=== PATIENT | male | born 1975 | race Caucasian/White ===

== ENCOUNTER 2017-06-02 13:44 | Inpatient (IN) | payer MEDICAID ==
[~2017-06-02] VITALS: Ht 170.2 cm; Wt 94.0 kg
[~2017-06-02 13:44] MED LIST: ARIP15TA2 PO; BUSP15 PO; TRIH5TAB2 PO
[2017-06-02 14:40] LABS: BASOPHILS % (AUTO) 0.4 % (0.0-2.0); EOSINOPHILS % (AUTO) 4.8 % (1.0-6.0); HEMATOCRIT 41.2 % (41-53); HEMOGLOBIN 14.4 g/dL (13.5-17.5); LYMPHOCYTES # (AUTO) 1.2 K/uL (1.0-4.8); LYMPHOCYTES % (AUTO) 16.7 % (22.0-44.0); MEAN CORPUSCULAR HGB CONC 34.9 G/dL (31.0-37.0); MEAN CORPUSCULAR VOLUME 92 fL (80-100); MONOCYTES # (AUTO) 0.8 K/uL (0.1-1.0); NEUTROPHILS # (AUTO) 4.8 K/uL (1.8-7.7); NEUTROPHILS % (AUTO) 67.1 % (40.0-70.0); PLATELET COUNT (AUTO) 273 K/uL (150-450); RED BLOOD CELL COUNT(AUTO) 4.48 MIL/uL (4.50-5.90)
[2017-06-02 14:57] LABS: ANION GAP 11 mmol/L (8-16); CALCIUM, TOTAL 9.2 mg/dL (8.8-10.5); CARBON DIOXIDE 27 mmol/L (22-29); CHLORIDE 102 mmol/L (98-107); GLOMERULAR FILTR. RATE CALC > 60 mL/min (>60); GLUCOSE,RANDOM 142 mg/dL (70-110); POTASSIUM 3.8 mmol/L (3.5-5.1); SODIUM SERUM 140 mmol/L (136-145); UREA NITROGEN, BLOOD 21 mg/dL (7-18)
[2017-06-02 15:02] LABS: ALANINE AMINOTRANSFERASE 23 U/L (12-78); ALBUMIN 3.9 g/dL (3.4-5.0); ALKALINE PHOSPHATASE 75 U/L (46-116); ASPARTATE AMINOTRANSFERASE 19 U/L (15-37); BILIRUBIN,TOTAL 0.3 mg/dL (0.1-1.0); TOTAL PROTEIN, SERUM 7.2 g/dL (6.4-8.2)
[2017-06-02] MEDS ORDERED: QUEtiapine FUMARATE 100 MG TABLET PO ONE (16:45)
[2017-06-02] MEDS ORDERED: LORazepam 2 MG TABLET PO ONE (16:45)
[2017-06-02] MEDS ORDERED: LORazepam 2 MG TABLET PO PRN (17:45)
[2017-06-02] MEDS ORDERED: HALOPERIDOL 5 MG TABLET PO PRN (17:45)
[2017-06-02] MEDS ORDERED: ZOLPIDEM TARTRATE 10 MG TABLET PO PRN (17:45)
[2017-06-02 18:01] LABS: CHOL/HDL RATIO 2.3 (4.2-7.3); CHOLESTEROL 170 mg/dL (131-200); HDL CHOLESTEROL 75 mg/dL (40-60); LDL CHOL (CALC.) 80 mg/dL (0-130); TRIGLYCERIDES 73 mg/dL (15-150)
[2017-06-02 20:00] VITALS: BP 110/62
[2017-06-02] MEDS: QUEtiapine FUMARATE 300 MG TABLET PO SCH (20:06)
[2017-06-02] MEDS: TRIHEXYPHENIDYL HCL 5 MG TABLET PO SCH (20:07)
[2017-06-02 20:54] VITALS: BP 110/62
[2017-06-02] MEDS ORDERED: INFLUENZA VIRUS VACCINE QVS 2017-18 (3YR+)/PF 60 MCG/0.5 ML SYRINGE IM ONE (21:00)
[2017-06-03 07:17] VITALS: BP 137/60
[2017-06-03 08:09] VITALS: BP 112/54
[2017-06-03] MEDS: NICOTINE 14 MG/24 HOUR PATCH TD SCH (09:00)
[2017-06-03] MEDS: SERTRALINE HCL 50 MG TABLET PO SCH (09:14)
[2017-06-03] MEDS: TRIHEXYPHENIDYL HCL 5 MG TABLET PO SCH ×2 (09:14→16:03)
[2017-06-03] MEDS: BENZOCAINE/MENTHOL LOZENGE PO PRN (14:59)
[2017-06-03 16:14] VITALS: BP 124/69
[2017-06-03] MEDS: QUEtiapine FUMARATE 300 MG TABLET PO SCH (20:02)
[2017-06-04 05:50] VITALS: BP 105/63
[2017-06-04] MEDS: NICOTINE 14 MG/24 HOUR PATCH TD SCH (09:00)
[2017-06-04] MEDS: SERTRALINE HCL 50 MG TABLET PO SCH (09:09)
[2017-06-04] MEDS: TRIHEXYPHENIDYL HCL 5 MG TABLET PO SCH ×2 (09:09→16:13)
[2017-06-04 09:10] VITALS: BP 111/63
[2017-06-04 17:52] VITALS: BP 112/60
[2017-06-04] MEDS: QUEtiapine FUMARATE 300 MG TABLET PO SCH (20:17)
[2017-06-05 06:50] VITALS: BP 100/60
[2017-06-05 08:33] VITALS: BP 101/63
[2017-06-05] MEDS: NICOTINE 14 MG/24 HOUR PATCH TD SCH (09:00)
[2017-06-05] MEDS: TRIHEXYPHENIDYL HCL 5 MG TABLET PO SCH ×2 (09:06→16:03)
[2017-06-05] MEDS: SERTRALINE HCL 50 MG TABLET PO SCH (09:06)
[2017-06-05 16:23] VITALS: BP 111/65
[2017-06-05] MEDS: QUEtiapine FUMARATE 300 MG TABLET PO SCH (20:18)
[2017-06-06 05:48] VITALS: BP 100/60
[2017-06-06 08:36] VITALS: BP 123/70
[2017-06-06] MEDS: NICOTINE 14 MG/24 HOUR PATCH TD SCH (09:00)
[2017-06-06] MEDS: SERTRALINE HCL 50 MG TABLET PO SCH (09:42)
[2017-06-06] MEDS: TRIHEXYPHENIDYL HCL 5 MG TABLET PO SCH ×2 (09:42→17:02)
[2017-06-06 16:42] VITALS: BP 101/60
[2017-06-06] MEDS: QUEtiapine FUMARATE 200 MG TABLET PO SCH (17:02)
[2017-06-07 06:08] VITALS: BP 109/61
[2017-06-07 08:45] VITALS: BP 102/56
[2017-06-07] MEDS: NICOTINE 14 MG/24 HOUR PATCH TD SCH (09:00)
[2017-06-07] MEDS: SERTRALINE HCL 50 MG TABLET PO SCH (09:04)
[2017-06-07] MEDS: QUEtiapine FUMARATE 200 MG TABLET PO SCH ×2 (09:04→16:31)
[2017-06-07] MEDS: TRIHEXYPHENIDYL HCL 5 MG TABLET PO SCH ×2 (09:04→16:31)
[2017-06-07 16:00] VITALS: BP 150/66
[2017-06-08 06:19] VITALS: BP 110/68
[2017-06-08 08:21] VITALS: BP 100/58
[2017-06-08] MEDS: NICOTINE 14 MG/24 HOUR PATCH TD SCH (09:00)
[2017-06-08] MEDS: SERTRALINE HCL 50 MG TABLET PO SCH (09:43)
[2017-06-08] MEDS: QUEtiapine FUMARATE 200 MG TABLET PO SCH ×2 (09:43→16:03)
[2017-06-08] MEDS: TRIHEXYPHENIDYL HCL 5 MG TABLET PO SCH ×2 (09:43→16:03)
[2017-06-08 15:43] VITALS: BP 98/52
[2017-06-08 16:02] VITALS: BP 110/66
[2017-06-08] MEDS: BENZOCAINE/MENTHOL LOZENGE PO PRN (18:50)
[2017-06-09 02:21] VITALS: BP 108/62
[2017-06-09 08:52] VITALS: BP 116/67
[2017-06-09] MEDS: NICOTINE 14 MG/24 HOUR PATCH TD SCH (09:00)
[2017-06-09] MEDS: SERTRALINE HCL 50 MG TABLET PO SCH (09:13)
[2017-06-09] MEDS: QUEtiapine FUMARATE 200 MG TABLET PO SCH ×2 (09:13→16:05)
[2017-06-09] MEDS: TRIHEXYPHENIDYL HCL 5 MG TABLET PO SCH ×2 (09:13→16:05)
[2017-06-09 16:40] VITALS: BP 106/73
[2017-06-10 01:32] VITALS: BP 101/60
[2017-06-10] MEDS: NICOTINE 14 MG/24 HOUR PATCH TD SCH (09:00)
[2017-06-10 09:10] VITALS: BP 120/69
[2017-06-10] MEDS: TRIHEXYPHENIDYL HCL 5 MG TABLET PO SCH ×2 (09:22→16:15)
[2017-06-10] MEDS: QUEtiapine FUMARATE 200 MG TABLET PO SCH ×2 (09:22→16:15)
[2017-06-10] MEDS: SERTRALINE HCL 50 MG TABLET PO SCH (09:23)
[2017-06-10 16:37] VITALS: BP 110/70
[2017-06-11 00:39] VITALS: BP 103/60
[2017-06-11 08:12] VITALS: BP 110/68
[2017-06-11] MEDS: TRIHEXYPHENIDYL HCL 5 MG TABLET PO SCH ×2 (08:47→16:23)
[2017-06-11] MEDS: SERTRALINE HCL 50 MG TABLET PO SCH (08:47)
[2017-06-11] MEDS: QUEtiapine FUMARATE 200 MG TABLET PO SCH ×2 (08:47→16:23)
[2017-06-11] MEDS: NICOTINE 14 MG/24 HOUR PATCH TD SCH (09:00)
[2017-06-11 16:35] VITALS: BP 104/75
[2017-06-12 01:36] VITALS: BP 102/78
[2017-06-12 08:10] VITALS: BP 102/67
[2017-06-12] MEDS: SERTRALINE HCL 50 MG TABLET PO SCH (08:56)
[2017-06-12] MEDS: TRIHEXYPHENIDYL HCL 5 MG TABLET PO SCH ×2 (08:56→16:31)
[2017-06-12] MEDS: QUEtiapine FUMARATE 200 MG TABLET PO SCH ×2 (08:56→16:31)
[2017-06-12] MEDS: NICOTINE 14 MG/24 HOUR PATCH TD SCH (08:58)
[2017-06-12 16:45] VITALS: BP 114/74
[2017-06-13 01:54] VITALS: BP 101/68
[2017-06-13 08:21] VITALS: BP 115/68
[2017-06-13] MEDS: SERTRALINE HCL 50 MG TABLET PO SCH (08:35)
[2017-06-13] MEDS: TRIHEXYPHENIDYL HCL 5 MG TABLET PO SCH ×2 (08:35→16:37)
[2017-06-13] MEDS: QUEtiapine FUMARATE 200 MG TABLET PO SCH ×2 (08:35→16:37)
[2017-06-13] MEDS: NICOTINE 14 MG/24 HOUR PATCH TD SCH (08:36)
[2017-06-13 16:22] VITALS: BP 112/64
[2017-06-14 00:37] VITALS: BP 108/64
[2017-06-14] MEDS ORDERED: QUET200T PO (07:38)
[2017-06-14] MEDS ORDERED: SERT25TA PO (07:38)
[2017-06-14] MEDS: NICOTINE 14 MG/24 HOUR PATCH TD SCH (08:41)
[2017-06-14] MEDS: QUEtiapine FUMARATE 200 MG TABLET PO SCH (08:41)
[2017-06-14] MEDS: SERTRALINE HCL 50 MG TABLET PO SCH (08:41)
[2017-06-14] MEDS: TRIHEXYPHENIDYL HCL 5 MG TABLET PO SCH (08:41)
[2017-06-14 08:44] VITALS: BP 105/71
== END 2017-06-14 09:30 | disposition home or self-care (01) | DRG 750 ==
LOC: EMS 13:45 → B2S 18:38
PROVIDERS: ADMIT Psychiatry & Neurology Psychiatry; ATTEND Psychiatry & Neurology Psychiatry
DX: F20.0 Paranoid schizophrenia (principal); R45.851 Suicidal ideations; Z91.14 Patient's other noncompliance with medication regimen; M19.90 Unspecified osteoarthritis, unspecified site; F15.10 Other stimulant abuse, uncomplicated; I34.1 Nonrheumatic mitral (valve) prolapse; F17.210 Nicotine dependence, cigarettes, uncomplicated; F12.10 Cannabis abuse, uncomplicated; J44.9 Chronic obstructive pulmonary disease, unspecified; I10 Essential (primary) hypertension; F10.10 Alcohol abuse, uncomplicated; F32.9 Major depressive disorder, single episode, unspecified; Z53.29 Procedure and treatment not carried out because of patient's decision for other reasons; Z59.0 Homelessness; Z88.8 Allergy status to other drugs, medicaments and biological substances; Z79.899 Other long term (current) drug therapy
CPT/HCPCS: 99285; G0480